=== PATIENT | male | born 1930 | race Caucasian/White ===

== ENCOUNTER 2016-11-05 00:02 | Inpatient (IN) | payer MEDICARE ==
[2016-11-05] VITALS (7 sets, daily range): BP systolic 133–156; RESP 18; TEMP 97.3–99; Ht 167.6 cm; Wt 62.6 kg
[~2016-11-05] VITALS: Ht 167.6 cm; Wt 62.6 kg
[2016-11-05] MEDS ORDERED: *PINK BRACELET XX ONE (03:30)
[2016-11-05] MEDS ORDERED: TEMAZEPAM 7.5 MG CAP PO PRN (03:40)
[2016-11-05] MEDS ORDERED: NITROGLYCERIN 50 MG/250 ML IV PRN (03:40)
[2016-11-05] MEDS ORDERED: MORPHINE 2 MG/ML SYR IV PRN (03:40)
[2016-11-05] MEDS ORDERED: NITROGLYCERIN SL 0.4 MG TAB SL PRN (03:40)
[2016-11-05] MEDS ORDERED: SALINE FLUSH 10 ML FLUSH PRN (03:40)
[2016-11-05] MEDS ORDERED: SODIUM CHLORIDE 0.9% 1,000 ML IV SCH (03:40)
[2016-11-05] MEDS ORDERED: ONDANSETRON 4 MG VIAL IV PRN (03:40)
[2016-11-05] MEDS ORDERED: LORAZEPAM 0.5 MG TAB PO PRN (03:40)
[2016-11-05] MEDS ORDERED: TRAMADOL 50 MG TAB PO PRN (03:40)
[2016-11-05] MEDS ORDERED: SODIUM CHLORIDE 0.9% FLUSH BAG 500 ML IV PRN (03:40)
[2016-11-05] MEDS ORDERED: ACETAMINOPHEN 325 MG TAB PO PRN (03:40)
[2016-11-05] MEDS ORDERED: DOCUSATE SOD 100 MG CAP PO PRN (03:40)
[2016-11-05] MEDS: NITROGLYCERIN 2% OINT 1 INCH PKT TOPICAL SCH ×4 (05:58→23:00)
[2016-11-05] MEDS ORDERED: METOPROLOL TART 25 MG TAB PO ONE (07:50)
[2016-11-05] MEDS: [UNRECOGNIZED DRUG - OTHER] XX SCH ×2 (08:00→20:00)
[2016-11-05] MEDS: ASPIRIN EC 81 MG TAB PO SCH (08:23)
[2016-11-05] MEDS: SALINE FLUSH 10 ML FLUSH SCH ×2 (08:23→20:25)
[2016-11-05] MEDS ORDERED: APIXABAN 2.5 MG TAB PO SCH (09:00)
[2016-11-05] MEDS ORDERED: ENOXAPARIN 40 MG/0.4 ML SYR SUBQ SCH (09:00)
[2016-11-05] MEDS ORDERED: MISSING DOSE XX ONE ×2 (10:10→12:15)
[2016-11-05] MEDS ORDERED: ONDANSETRON 4 MG TAB PO PRN (10:55)
[2016-11-05] MEDS ORDERED: ASPIRIN EC 81 MG TAB PO SCH (10:55)
[2016-11-05] MEDS: METOPROLOL TART 25 MG TAB PO SCH ×2 (10:55→20:26)
[2016-11-05] MEDS: ENOXAPARIN 40 MG/0.4 ML SYR SUBQ SCH (11:00)
[2016-11-05] MEDS: XTANDI 40 MG PO SCH (12:02)
[2016-11-05] MEDS: CARBIDOPA PO SCH ×3 (12:03→20:26)
[2016-11-05] MEDS: DROXIDOPA 300 MG PO SCH (12:03)
[2016-11-05] MEDS: LEVODOPA PO SCH ×3 (12:03→20:26)
[2016-11-05] MEDS: LEVOTHYROXINE 0.137 MG TAB PO SCH (12:04)
[2016-11-05] MEDS: Losartan 50 MG TAB PO SCH (12:04)
[2016-11-05] MEDS: CALCIUM /VIT D 600 MG TAB PO SCH (12:04)
[2016-11-05] MEDS: FERROUS SULF 325 MG TAB PO SCH (12:04)
[2016-11-05] MEDS: MISOPROSTOL 100 MCG TAB PO SCH ×2 (12:54→20:26)
[2016-11-05] MEDS ORDERED: METOPROLOL TART 25 MG TAB PO SCH (20:00)
[2016-11-05] MEDS: ZOCOR 40 MG PO SCH (20:25)
[2016-11-05] MEDS: TRAMADOL 50 MG TAB PO SCH (20:26)
[2016-11-05] MEDS: PANTOPRAZOLE 40 MG TAB PO SCH (20:26)
[2016-11-06] VITALS (13 sets, daily range): BP systolic 101–138; RESP 18; TEMP 97.6–98.8
[2016-11-06] MEDS: NITROGLYCERIN 2% OINT 1 INCH PKT TOPICAL SCH ×4 (05:19→23:10)
[2016-11-06] MEDS ORDERED: CARDIZEM 1 MG/ML DRIP 125 ML IV SCH (05:55)
[2016-11-06] MEDS ORDERED: DILTIAZEM 125 MG in DEXTROSE 125 ML IV PUSH ONE (05:55)
[2016-11-06] MEDS ORDERED: MISSING DOSE XX ONE (07:40)
[2016-11-06] MEDS: [UNRECOGNIZED DRUG - OTHER] XX SCH ×2 (08:00→20:00)
[2016-11-06] MEDS: Losartan 50 MG TAB PO SCH (08:11)
[2016-11-06] MEDS: CALCIUM /VIT D 600 MG TAB PO SCH (08:11)
[2016-11-06] MEDS: LEVOTHYROXINE 0.137 MG TAB PO SCH (08:11)
[2016-11-06] MEDS: METOPROLOL TART 25 MG TAB PO SCH ×2 (08:11→20:02)
[2016-11-06] MEDS: ASPIRIN EC 81 MG TAB PO SCH (08:11)
[2016-11-06] MEDS: DROXIDOPA 300 MG PO SCH ×2 (08:12→12:27)
[2016-11-06] MEDS: XTANDI 40 MG PO SCH (08:12)
[2016-11-06] MEDS: LEVODOPA PO SCH ×3 (08:12→20:01)
[2016-11-06] MEDS: MISOPROSTOL 100 MCG TAB PO SCH ×2 (08:12→20:02)
[2016-11-06] MEDS: FERROUS SULF 325 MG TAB PO SCH (08:12)
[2016-11-06] MEDS: SALINE FLUSH 10 ML FLUSH SCH ×2 (08:12→20:01)
[2016-11-06] MEDS: CARBIDOPA PO SCH ×3 (08:12→20:01)
[2016-11-06] MEDS: TRAMADOL 50 MG TAB PO SCH ×2 (10:05→20:02)
[2016-11-06] MEDS: ENOXAPARIN 40 MG/0.4 ML SYR SUBQ SCH (10:25)
[2016-11-06] MEDS ORDERED: LORAZEPAM 0.5 MG TAB PO PRN (12:40)
[2016-11-06] MEDS ORDERED: SALINE FLUSH 10 ML FLUSH PRN (12:40)
[2016-11-06] MEDS: ZOCOR 40 MG PO SCH (20:01)
[2016-11-06] MEDS: PANTOPRAZOLE 40 MG TAB PO SCH (20:02)
[2016-11-06] MEDS ORDERED: TEMAZEPAM 7.5 MG CAP PO PRN (21:00)
[2016-11-06] MEDS ORDERED: TEMAZEPAM 15 MG CAP PO PRN (21:00)
[2016-11-07] VITALS (28 sets, daily range): BP systolic 83–179; RESP 18–24; TEMP 97.5–98.4
[2016-11-07] MEDS: SODIUM CHLORIDE 0.9% FLUSH BAG 500 ML IV SCH (03:55)
[2016-11-07] MEDS: NITROGLYCERIN 2% OINT 1 INCH PKT TOPICAL SCH ×3 (05:43→18:01)
[2016-11-07] MEDS: ASPIRIN EC 81 MG TAB PO SCH (08:00)
[2016-11-07] MEDS: SALINE FLUSH 10 ML FLUSH SCH ×2 (08:00→20:25)
[2016-11-07] MEDS: DROXIDOPA 300 MG PO SCH ×2 (08:00→12:55)
[2016-11-07] MEDS: [UNRECOGNIZED DRUG - OTHER] XX SCH ×2 (08:00→20:00)
[2016-11-07] MEDS ORDERED: MISSING DOSE XX ONE ×2 (08:10)
[2016-11-07] MEDS: ACETYLCYSTEINE 20% 6,000 MG/30 ML VIAL PO SCH ×2 (08:55→20:25)
[2016-11-07] MEDS ORDERED: SODIUM BICARB 8.4% IV SCH (08:55)
[2016-11-07] MEDS ORDERED: DEXTROSE 5% IV SCH (08:55)
[2016-11-07] MEDS ORDERED: ACETAMINOPHEN 325 MG TAB PO PRN (09:05)
[2016-11-07] MEDS ORDERED: NITROGLYCERIN SL 0.4 MG TAB SL PRN (09:05)
[2016-11-07] MEDS ORDERED: LORAZEPAM 0.5 MG TAB PO PRN (09:05)
[2016-11-07] MEDS ORDERED: TEMAZEPAM 7.5 MG CAP PO PRN (09:05)
[2016-11-07] MEDS ORDERED: PROMETHAZINE 25 MG/ML VIAL IV PRN (09:05)
[2016-11-07] MEDS ORDERED: TEMAZEPAM 15 MG CAP PO PRN (09:05)
[2016-11-07] MEDS ORDERED: OXYCODONE/APAP 5/325 TAB PO PRN (09:05)
[2016-11-07] MEDS ORDERED: AMIODARONE 200 MG TAB PO ONE (09:20)
[2016-11-07] MEDS: AMIODARONE 200 MG TAB PO SCH ×2 (09:46→20:24)
[2016-11-07] MEDS: CALCIUM /VIT D 600 MG TAB PO SCH (10:34)
[2016-11-07] MEDS: XTANDI 40 MG PO SCH (10:35)
[2016-11-07] MEDS: LEVOTHYROXINE 0.137 MG TAB PO SCH (10:35)
[2016-11-07] MEDS: METOPROLOL TART 25 MG TAB PO SCH ×2 (10:35→20:23)
[2016-11-07] MEDS: LEVODOPA PO SCH ×3 (10:35→20:24)
[2016-11-07] MEDS: FERROUS SULF 325 MG TAB PO SCH (10:35)
[2016-11-07] MEDS: CARBIDOPA PO SCH ×3 (10:35→20:24)
[2016-11-07] MEDS: Losartan 50 MG TAB PO SCH (10:35)
[2016-11-07] MEDS: MISOPROSTOL 100 MCG TAB PO SCH ×2 (10:42→20:24)
[2016-11-07] MEDS: TRAMADOL 50 MG TAB PO SCH ×2 (10:42→20:29)
[2016-11-07] MEDS ORDERED: LIDOCAINE 2% 20 ML ONE ×2 (13:05→21:14)
[2016-11-07] MEDS ORDERED: MIDAZOLAM 2 MG/2 ML INJ ONE ×2 (13:06→21:52)
[2016-11-07] MEDS ORDERED: MIDAZOLAM HCL 5 MG/5 ML VIAL IV ONE (14:25)
[2016-11-07] MEDS: PANTOPRAZOLE 40 MG TAB PO SCH (20:24)
[2016-11-07] MEDS: ZOCOR 40 MG PO SCH (20:24)
[2016-11-07] MEDS: TICAGRELOR 90 MG TAB PO SCH (20:25)
[2016-11-07] MEDS ORDERED: Atorvastatin 20 MG TAB PO SCH (21:00)
[2016-11-07] MEDS ORDERED: TICAGRELOR 90 MG TAB ONE (21:14)
[2016-11-07] MEDS ORDERED: METOPROLOL 5 MG/5 ML VIAL IV ONE (21:14)
[2016-11-07] MEDS ORDERED: ASPIRIN 81 MG CHEW TAB ONE (21:14)
[2016-11-07] MEDS ORDERED: MEPERIDINE 50 MG/ML ONE (21:54)
[2016-11-08] MEDS: NITROGLYCERIN 2% OINT 1 INCH PKT TOPICAL SCH ×3 (00:47→12:00)
[2016-11-08 03:26] VITALS: BP_SYST 132; RESP 18; TEMP 98.7
[2016-11-08] MEDS: SODIUM CHLORIDE 0.9% FLUSH BAG 500 ML IV SCH (06:00)
[2016-11-08 07:00] VITALS: BP_SYST 143; RESP 20; TEMP 98.4
[2016-11-08] MEDS: [UNRECOGNIZED DRUG - OTHER] XX SCH (07:38)
[2016-11-08] MEDS: ASPIRIN EC 81 MG TAB PO SCH (07:41)
[2016-11-08] MEDS ORDERED: AMIODARONE 200 MG TAB PO ONE (09:00)
[2016-11-08] MEDS ORDERED: ASPIRIN 81 MG CHEW TAB PO SCH (09:00)
[2016-11-08] MEDS: LEVOTHYROXINE 0.137 MG TAB PO SCH (09:10)
[2016-11-08] MEDS: Losartan 50 MG TAB PO SCH (09:10)
[2016-11-08] MEDS: ACETYLCYSTEINE 20% 6,000 MG/30 ML VIAL PO SCH (09:10)
[2016-11-08] MEDS: MISOPROSTOL 100 MCG TAB PO SCH (09:10)
[2016-11-08] MEDS: SALINE FLUSH 10 ML FLUSH SCH (09:10)
[2016-11-08] MEDS: CALCIUM /VIT D 600 MG TAB PO SCH (09:11)
[2016-11-08] MEDS: TICAGRELOR 90 MG TAB PO SCH (09:11)
[2016-11-08] MEDS: AMIODARONE 200 MG TAB PO SCH (09:11)
[2016-11-08] MEDS: FERROUS SULF 325 MG TAB PO SCH (09:11)
[2016-11-08] MEDS: METOPROLOL TART 25 MG TAB PO SCH (09:11)
[2016-11-08] MEDS: LEVODOPA PO SCH (09:12)
[2016-11-08] MEDS: DROXIDOPA 300 MG PO SCH ×2 (09:12→12:17)
[2016-11-08] MEDS: XTANDI 40 MG PO SCH (09:12)
[2016-11-08] MEDS: CARBIDOPA PO SCH (09:12)
[2016-11-08] MEDS: TRAMADOL 50 MG TAB PO SCH (09:21)
[2016-11-08 11:55] VITALS: BP_SYST 132; RESP 20; TEMP 98.4
[2016-11-08 15:19] VITALS: BP_SYST 132; RESP 20; TEMP 98.4
== END 2016-11-08 18:22 | disposition home or self-care (01) | DRG 247 ==
LOC: ENRESERVDT → ENRESERV → ENRESERVTM → ENPENDDIS 02:30 → PCU 02:30
PROVIDERS: ADMIT Specialist; ATTEND Specialist
PROC: 027035Z Dilation of Coronary Artery, One Artery with Two Drug-eluting Intraluminal Devices, Percutaneous Approach (ICD-10-PCS; principal; 2016-11-07)
PROC: 4A023N7 Measurement of Cardiac Sampling and Pressure, Left Heart, Percutaneous Approach (ICD-10-PCS; 2016-11-07)
PROC: B2111ZZ Fluoroscopy of Multiple Coronary Arteries using Low Osmolar Contrast (ICD-10-PCS; 2016-11-07)
PROC: B2151ZZ Fluoroscopy of Left Heart using Low Osmolar Contrast (ICD-10-PCS; 2016-11-07)
CPT/HCPCS: 80048; 80053; 80061; 82550; 83735; 84484; 85014; 85018; 85025; 85347; 85610; 85730; 93005; 93458; 94799